=== PATIENT | female | born 1970 | race Caucasian/White ===

== ENCOUNTER → 2024-04-16 11:42 | Outpatient (REF) | payer OTHER, SELFPAY | LOC: HWRAD 11:42 | PROVIDERS: ATTENDING PHYSICIAN Physician Assistant Medical | DX: M54.2 Cervicalgia (principal) | CPT/HCPCS: 72052 ==

== ENCOUNTER 2024-05-05 12:56 | Emergency (ER) | payer OTHER, SELFPAY ==
[2024-05-05 13:00] VITALS: BP 97/58
--- NOTE | 2024-05-05 13:23 | ED.GENMED ---
History of Present Illness
General
Chief Complaint: Musculo-Skeletal Complaint
Source: patient
Exam Limitations: none
Time Seen by Provider: 05/05/24 13:17
History of Present Illness
History of Present Illness:
54yoF with no significant past medical history presenting for evaluation of left ankle pain. Patient was walking down the steps about 1 hour ago when she missed the bottom 2 steps and rolled her left ankle. She states she heard a crack. Patient
is presenting with diffuse left ankle pain and difficulty with weight bearing. No paresthesias. She denies any other injuries from the fall. No prior history of left ankle injuries.
Phy Exam
General Physical Exam
General Presentation: well appearing and no apparent distress
General age: appears stated age
General Skin: warm and dry
General Habitus: normal
General Mental: alert
ENT Exam
ENT Exam: normocephalic
Pulmonary Exam
Pulmonary Exam: no respiratory distress
Neurological Exam
Neurological Exam: alert
[place] Coma Scale
Eye Opening: Spontaneous
Verbal Response: Oriented
Motor Response: Obeys Commands
GCS Total Score: 15
Musculoskeletal Exam
Musculoskeletal Exam: other (L ankle: Soft tissue swelling noted. No deformity. Skin intact. +Tenderness to medial and lateral malleolus. No tenderness to 5th metatarsal or proximal fibula. ROM decreased 2/2 pain. 2+ DP pulse and sensation intact. )
Skin Exam
Skin Exam: normal color and warm/dry
Psychiatric Exam
Psychiatric Exam: normal mood/affect
Course
Orders/Labs/Results
Orders:
Orders
05/05/24 12:58
Ankle, left 3 view CR [CR Ankle - Left Min 3 Views ] Urgent
Comment:
Reason For Exam: pain
05/05/24 13:22
Ice Pack-Treatment DIRECTED
Location: L ankle
Ibuprofen [Motrin] 600 mg PO NOW STA
05/05/24 13:55
Ortho Boot Left- Treatment ONCE
Short or tall?: Short
05/05/24 14:18
Crutches-Treatment ONCE
Vital Signs
Initial and Last Documented VS:
Initial Vital Signs
Temp Pulse Resp BP Pulse Ox
98.0 F 69 17 97/58 99
05/05/24 13:00 05/05/24 13:00 05/05/24 13:00 05/05/24 13:00 05/05/24 13:00
Last Documented Vital Signs
Temp Pulse Resp BP Pulse Ox
98.0 F 69 17 97/58 99
05/05/24 13:00 05/05/24 13:00 05/05/24 13:00 05/05/24 13:00 05/05/24 13:00
MDM/Problems Addressed
Differential Diagnosis Includes:
54yoF here with L ankle pain after an injury. Swelling noted on exam without deformity. ROM decreased 2/2 pain. LLE is neurovascularly intact. Differential diagnosis includes sprain vs. fracture
X-rays obtained which show a suspected talus avulsion fracture per my interpretation. Formal radiology read pending. She was placed in a boot and crutches provided. Supportive care discussed and advised f/u with orthopedics. She was discharged in
stable condition.
*Critical Care Note
Total Time (30-74mins, 75-104mins- exclusive of procedures): Not Applicable
ED Attending Note
-
Portions of this chart may have been created with voice recognition software.� Occasional wrong word or��sound alike� substitutions may have occurred due to the inherent limitations of voice recognition software.
Discharge Plan
Departure
Patient Disposition: Home (Routine Discharge)
Date of Disposition: 05/05/24
Time of Disposition: 14:24
Patient with high blood pressure during this ER visit?: No
Discharge Problem:
Avulsion injury of left ankle region
Instructions: Ankle Fracture (DC)
Referrals:
Virgie Morrison PA-C [Family Provider] -
Robert Hayden MD [Active] -
Activity Restrictions/Additional Instructions:
Rest, ice, compress, and elevate your ankle. Take Tylenol and ibuprofen for pain. Wear boot for immobilization.
Please call today to schedule a follow-up with orthopedics.
Interventions
Interventions:
*Risk Screen - Suicide Last Done: 05/05/24 13:01
*General Assessment Last Done: 05/05/24 13:01
*Neglect/Abuse Screening Last Done: 05/05/24 13:01
*ED COVID-19 Vaccine History Last Done: 05/05/24 13:01
*Nursing Disposition Last Done: 05/05/24 14:41
ED-Musculoskeletal Assessment Last Done: 05/05/24 14:41
Discharge Date and Time
Discharge Date/Time: 05/05/24 14:44
Print Language: JAPANESE
[2024-05-05] MEDS: MOTRIN 600 MG PO (13:35)
== END 2024-05-05 14:44 | disposition home or self-care (01) ==
LOC: EMR 12:56
PROVIDERS: EMERGENCY PHYSICIAN Emergency Medicine; FAMILY PHYSICIAN Physician Assistant Medical
DX: S99.912A Unspecified injury of left ankle, initial encounter (principal); W19.XXXA Unspecified fall, initial encounter; X50.1XXA Overexertion from prolonged static or awkward postures, initial encounter; Y93.01 Activity, walking, marching and hiking; Z88.5 Allergy status to narcotic agent
CPT/HCPCS: 99283; 29515; 73610

== ENCOUNTER → 2024-05-19 12:07 | Outpatient (REF) | payer OTHER, SELFPAY | LOC: HWWDC 12:07 | PROVIDERS: ATTENDING PHYSICIAN Physician Assistant Medical | DX: Z12.31 Encounter for screening mammogram for malignant neoplasm of breast (principal) | CPT/HCPCS: 77063; 77067 ==

== ENCOUNTER → 2025-02-06 08:48 | Outpatient (REF) | payer OTHER, SELFPAY | LOC: PAVMRI 08:48 | PROVIDERS: ATTENDING PHYSICIAN Student in an Organized Health Care Education/Training Program; FAMILY PHYSICIAN Physician Assistant Medical | DX: M25.572 Pain in left ankle and joints of left foot (principal) | CPT/HCPCS: 73721 ==